=== PATIENT | female | born 1955 ===

== ENCOUNTER 2024-01-12 10:15 | Inpatient (IN) | payer OTHER ==
[~2024-01-12] VITALS: Ht 152.4 cm; Wt 67.6 kg
[2024-01-12] MEDS ORDERED: LOSARTAN POTASS50 MG PO (10:57)
[2024-01-12] MEDS ORDERED: PROTONIX40 MG PO (10:57)
[2024-01-12] MEDS ORDERED: PEPCID40 MG PO (10:57)
[2024-01-12] MEDS ORDERED: HORIZANT300 MG PO (10:58)
[2024-01-12] MEDS ORDERED: CLONAZEPAM1 MG PO (10:58)
[2024-01-12] MEDS ORDERED: DICY20TA PO (10:58)
[2024-01-12] MEDS ORDERED: LIVALO2 MG PO (10:58)
[2024-01-12] MEDS ORDERED: MIRALAX17 GM PO (10:59)
[2024-01-19] MEDS ORDERED: LEVO-T25 MCG (13:42)
[2024-01-19] MEDS ORDERED: PREGABALIN75 MG (13:42)
[2024-01-19] MEDS ORDERED: BELSOMRA15 MG (13:42)
[2024-01-19] MEDS ORDERED: ERTAPENEM SODIUM 1,000 MG VIAL IV ONE (14:00)
[2024-01-19] MEDS ORDERED: LIDOCAINE HCL 1%/EPINEPHRINE 20ML VIAL IJ ONE (14:00)
[2024-01-19] MEDS ORDERED: BUPIVACAINE HCL/PF 0.25% 50 ML VIAL IJ ONE (14:00)
[2024-01-19] MEDS ORDERED: OxyCODONE HCL 5 MG TABLET (ROXICODONE) PO PRN (16:00)
[2024-01-19] MEDS ORDERED: 0.9 % SODIUM CHLORIDE 1,000 ML IV SCH (16:00)
[2024-01-19] MEDS ORDERED: DEXTROSE 50 % IN WATER 0.5 G/ML DISP.SYRIN IV PRN (16:00)
[2024-01-19] MEDS ORDERED: MORPHINE SULFATE 4 MG/ML CARTRIDGE IV PRN (16:00)
[2024-01-19] MEDS ORDERED: ONDANSETRON HCL 2 MG/ML VIAL IV PRN (16:00)
[2024-01-19] MEDS ORDERED: ONDANSETRON HCL 2 MG/ML VIAL IV ONE (16:55)
[2024-01-19] MEDS ORDERED: GABAPENTIN 300 MG CAPSULE PO SCH (17:00)
[2024-01-19] MEDS ORDERED: HYOSCYAMINE SULFATE 0.125 MG TAB.SUBL SL SCH (17:00)
[2024-01-19] MEDS ORDERED: POLYETHYLENE GLYCOL 3350 17 GM BLIST.PACK PO SCH (17:00)
[2024-01-19] MEDS ORDERED: ENALAPRILAT DIHYDRATE 1.25 MG/ML VIAL IV PRN (17:00)
[2024-01-19] MEDS ORDERED: METRONIDAZOLE/SODIUM CHLORIDE 500 MG/100 ML PIGGYBACK IV SCH (17:00)
[2024-01-19] MEDS ORDERED: MORPHINE SULFATE 2 MG/ML CARTRIDGE IV ONE (18:00)
[2024-01-19] MEDS ORDERED: ALBUTEROL SULFATE 3 ML/2.5 MG AMPUL.NEB IH SCH (18:00)
[2024-01-19 18:42] LABS: HEMATOCRIT 40.3 % (36.0-45.00); HEMOGLOBIN 13.4 g/dL (12.0-15.00); MEAN CELL VOLUME 93.6 fL (80.00-100.00); MEAN CORPUSCULAR HEMOGLOBIN 31.2 pg (27.00-32.0); MEAN CORPUSCULAR HGB CONC 33.3 g/dl (32.0-36.0); PLATELET COUNT 260 K/uL (150-450); RED BLOOD COUNT 4.31 M/uL (4.00-6.00); RED CELL DISTRIBUTION WIDTH 13.5 % (11.5-14.5)
[2024-01-19 18:50] LABS: ALBUMIN 3.8 gm/dL (3.4-5.0); CALCIUM 9.9 mg/dL (8.5-10.1); CREATININE SERUM 0.77 mg/dL (0.55-1.02); GFR 74.11; MAGNESIUM 1.7 mg/dL (1.8-2.4); PHOSPHOROUS 3.5 mg/dL (2.5-4.9); POTASSIUM 3.82 mEq/L (3.5-5.1)
[2024-01-19] MEDS ORDERED: ACETAMINOPHEN 500 MG GEL..CAP PO SCH (20:00)
[2024-01-19 20:51] VITALS: BP 119/59; O2SAT 98
[2024-01-19] MEDS ORDERED: CELECOXIB 200 MG CAPSULE PO SCH (21:00)
[2024-01-19] MEDS ORDERED: FAMOTIDINE/PF 20 MG/2 ML VIAL IV PUSH SCH (21:00)
[2024-01-20 00:14] VITALS: BP 145/62; O2SAT 98
[2024-01-20 06:29] LABS: HEMATOCRIT 35.3 % (36.0-45.00); HEMOGLOBIN 12.1 g/dL (12.0-15.00); MEAN CELL VOLUME 92.3 fL (80.00-100.00); MEAN CORPUSCULAR HEMOGLOBIN 31.6 pg (27.00-32.0); MEAN CORPUSCULAR HGB CONC 34.3 g/dl (32.0-36.0); PLATELET COUNT 226 K/uL (150-450); RED BLOOD COUNT 3.82 M/uL (4.00-6.00); RED CELL DISTRIBUTION WIDTH 13.5 % (11.5-14.5)
[2024-01-20 07:18] LABS: CALCIUM 8.8 mg/dL (8.5-10.1); CREATININE SERUM 0.67 mg/dL (0.55-1.02); GFR 87.01; MAGNESIUM 1.7 mg/dL (1.8-2.4); POTASSIUM 3.7 mEq/L (3.5-5.1)
[2024-01-20] MEDS ORDERED: LOSARTAN POTASSIUM 50 MG TABLET PO SCH (09:00)
[2024-01-20] MEDS ORDERED: MAGNESIUM SULFATE IN WATER 50 ML IV NR (12:00)
[2024-01-20 17:00] VITALS: BP 95/50; O2SAT 96
[2024-01-20] MEDS ORDERED: ENOXAPARIN SODIUM 40 MG/0.4 ML SYRINGE SUBCUTANEO SCH (17:00)
[2024-01-20] MEDS ORDERED: TAMSULOSIN HCL 0.4 MG CAP PO STA (20:39)
[2024-01-20 21:10] VITALS: BP 114/60
[2024-01-20 22:32] VITALS: BP 80/49
[2024-01-21 00:46] VITALS: BP 103/67; O2SAT 96
[2024-01-21 06:53] VITALS: BP 129/75; O2SAT 90
[2024-01-21 06:56] VITALS: O2SAT 95
[2024-01-21 08:00] VITALS: BP 144/66; O2SAT 98
[2024-01-21 08:05] LABS: HEMATOCRIT 33.4 % (36.0-45.00); HEMOGLOBIN 11.5 g/dL (12.0-15.00); MEAN CELL VOLUME 93.3 fL (80.00-100.00); MEAN CORPUSCULAR HGB CONC 34.3 g/dl (32.0-36.0); PLATELET COUNT 203 K/uL (150-450); RED BLOOD COUNT 3.58 M/uL (4.00-6.00); RED CELL DISTRIBUTION WIDTH 13.6 % (11.5-14.5)
[2024-01-21 08:45] LABS: CREATININE SERUM 0.57 mg/dL (0.55-1.02); GFR 104.86; MAGNESIUM 2.2 mg/dL (1.8-2.4); PHOSPHOROUS 2.3 mg/dL (2.5-4.9); POTASSIUM 3.81 mEq/L (3.5-5.1)
[2024-01-21] MEDS ORDERED: ENOXAPARIN SODIUM 40 MG/0.4 ML SYRINGE SUBCUTANEO SCH (09:00)
[2024-01-21] MEDS ORDERED: POTASSIUM PHOS,M-BASIC-D-BASIC 3 MM/ML VIAL IV NR (10:30)
[2024-01-21 16:32] VITALS: BP 131/61; O2SAT 100
[2024-01-21] MEDS ORDERED: TAMSULOSIN HCL 0.4 MG CAP PO SCH (21:00)
[2024-01-22 00:05] VITALS: BP 104/51; O2SAT 95
[2024-01-22 08:10] VITALS: BP 144/64; O2SAT 96
[2024-01-22] MEDS ORDERED: INTESTINEX680 M1 PO (10:36)
[2024-01-22] MEDS ORDERED: LEVSIN/SL0.125 MG SL (10:37)
[2024-01-22] MEDS ORDERED: NEURONTIN300 MG PO (10:37)
== END 2024-01-22 11:37 | disposition home or self-care (01) | DRG 331 ==
LOC: SURH 01-19 09:39 → O/R 01-19 09:39 → SURH 01-19 10:15 → O/R 01-19 18:22 → SURH 01-19 18:30
PROVIDERS: Internal Medicine Geriatric Medicine; ADMIT Surgery; ATTEND Surgery
PROC: 3E0F7GC Introduction of Other Therapeutic Substance into Respiratory Tract, Via Natural or Artificial Opening (ICD-10-PCS; 2024-01-19)
PROC: 0DTN4ZZ Resection of Sigmoid Colon, Percutaneous Endoscopic Approach (ICD-10-PCS; 2024-01-19)
PROC: 0DBP4ZZ Excision of Rectum, Percutaneous Endoscopic Approach (ICD-10-PCS; 2024-01-19)
PROC: 0DJ08ZZ Inspection of Upper Intestinal Tract, Via Natural or Artificial Opening Endoscopic (ICD-10-PCS; 2024-01-19)
PROC: 02HV33Z Insertion of Infusion Device into Superior Vena Cava, Percutaneous Approach (ICD-10-PCS; principal; 2024-01-20)
DX: K57.32 Diverticulitis of large intestine without perforation or abscess without bleeding (principal); R19.4 Change in bowel habit; R10.32 Left lower quadrant pain; I10 Essential (primary) hypertension

== ENCOUNTER 2024-01-12 16:58 | Outpatient (CLI) | payer OTHER ==
[~2024-01-12 16:58] MED LIST: CLONAZEPAM1 MG PO; DICY20TA PO; HORIZANT300 MG PO; LIVALO2 MG PO; LOSARTAN POTASS50 MG PO; MIRALAX17 GM PO; PEPCID40 MG PO; PROTONIX40 MG PO
== END 2024-01-12 17:02 | disposition home or self-care (01) ==
LOC: LAB 16:58
PROVIDERS: ATTEND Internal Medicine Geriatric Medicine
DX: D68.9 Coagulation defect, unspecified (principal)